=== PATIENT | male | born 1970 | race Caucasian/White ===

== ENCOUNTER → 2024-05-27 16:20 | Outpatient (REF) | payer OTHER, SELFPAY | LOC: MRI 3T 16:20 | PROVIDERS: ATTENDING PHYSICIAN Family Medicine | DX: R97.20 Elevated prostate specific antigen [PSA] (principal); Z80.42 Family history of malignant neoplasm of prostate | CPT/HCPCS: 72197; A9575 ==

== ENCOUNTER → 2025-02-13 07:20 | Outpatient (REF) | payer OTHER, SELFPAY | LOC: HWRCS 07:20 | PROVIDERS: ATTENDING PHYSICIAN Internal Medicine Cardiovascular Disease; FAMILY PHYSICIAN Family Medicine | DX: R00.2 Palpitations (principal) | CPT/HCPCS: 93306 ==